=== PATIENT | female | born 1955 | race Caucasian/White ===

== ENCOUNTER 2019-11-20 20:27 | Emergency (ER) | payer MEDICARE, OTHER ==
[2019-11-20 20:50] VITALS: BP 112/60; PULSE 110
[2019-11-20] MEDS ORDERED: Sodium Chloride 0.9% 10 ML Syringe FLUSH PRN (20:54)
--- NOTE | 2019-11-20 21:23 | EDM.PDOC ---
ED HPI GENERAL MEDICAL PROBLEM - General Chief Complaint: General Stated Complaint: sore throat, edema to legs Time Seen by Provider: 11/20/19 20:50 Source of Information: Reports: Patient History Limitations: Reports: No Limitations - History of Present Illness INITIAL COMMENTS - FREE TEXT/NARRATIVE: Pt. presents to ER with numerous complaints. Pt. is currently being treated for malignant neoplasm of head or pancreas(adenocarcinoma). Pt. has undergone chemotherapy since May, starting in [place] and continuing at [facility]. Initially in [place], now on Gemcitabine and Abraxane due to intolerance. Pt. of [place]. Pt. has had a total of 2 weeks of chemo in [place]. She states that she also started radiation this past week as well. Last episode of chemotherapy was on Saturday. Last CT did not show significant improvement of the malignancy. Pleuritic fluid has been negative for malignant cells. Pt. primary complaints today are increased peripheral edema, irritation to mouth and throat, fatigue, increased ascites, fatigue. She has a pleurx catheter and is trained to drain this on her own. She states that she last did this last evening. Pt. complains of shortness of breath, but states that she has been experiencing this for some time, but feels it is worse today. Denies any chest, jaw, arm, neck or back pain. According to her medical record from [place], it appears that many of the complaints she has tonight have been present for some time. She has been dealing with anemia. Her last HgB 4 days ago was 6.5. She states that she has received 2 units of blood since that time. Denies any focal abdominal pain. She states that the discomfort is worse but similar to what she has been experiencing due to the ascites. 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 Onset: Today Onset Date: 11/20/19 Location: Reports: Abdomen, Lower Extremity, Left, Lower Extremity, Right, Generalized, Other (See HPI) Severity: Moderate - Related Data Allergies Allergy/AdvReac Type Severity Reaction Status Date / Time meperidine HCl [From Demerol] Allergy Cannot Verified 11/20/19 20:37 Remember Penicillins Allergy Rash Verified 11/20/19 20:37 promethazine HCl Allergy Cannot Verified 11/20/19 20:37 [From Phenergan] Remember vancomycin Allergy Cannot Verified 11/20/19 20:37 Remember Home Meds: Home Meds Morphine [Morphine 20 MG/ML Soln] 1 mg SQ ASDIRECTED 09/14/14 [History] Albuterol [Proventil Neb Soln] 2.5 mg NEB Q4H PRN 11/20/19 [History] Albuterol [Ventolin HFA] 2 puff INH Q4H PRN 11/20/19 [History] Apixaban [Eliquis] 5 mg PO BID 11/20/19 [History] Fluticasone/Vilanterol [Breo Ellipta 100-25 MCG Inhalation Kit] 1 each IH DAILY 11/20/19 [History] Furosemide [Lasix] 40 mg PO DAILY PRN 11/20/19 [History] Magnesium Oxide [Mag-Oxide] 200 mg PO BID 11/20/19 [History] Ondansetron [Zofran ODT] 8 mg PO TID PRN 11/20/19 [History] Potassium Chloride [Klor-Con M20] 40 meq PO BID 11/20/19 [History] atorvaSTATin [Lipitor] 40 mg PO DAILY 11/20/19 [History] oxyCODONE 5 mg PO Q6H PRN 11/20/19 [History] riTUXimab [Rituxan] 10 mg IV ASDIRECTED 11/20/19 [History] Past Medical History Gastrointestinal History: Reports: GERD Musculoskeletal History: Reports: Back Pain, Chronic Psychiatric History: Reports: Anxiety, Depression Hematologic History: Reports: Blood Transfusion(s) - Past Surgical History Neurological Surgical History: Reports: Other (See Below) ED ROS GENERAL - Review of Systems Review Of Systems: See Below Constitutional: Reports: Malaise, Fatigue HEENT: Reports: No Symptoms Respiratory: Reports: Shortness of Breath Cardiovascular: Reports: Edema Endocrine: Reports: No Symptoms GI/Abdominal: Reports: Abdominal Pain, Other (ascities ) : Reports: No Symptoms. Denies: Dysuria, Hematuria Musculoskeletal: Reports: No Symptoms Skin: Reports: No Symptoms Neurological: Reports: No Symptoms Psychiatric: Reports: No Symptoms Hematologic/Lymphatic: Reports: Anemia Immunologic: Reports: No Symptoms ED EXAM, GENERAL - Physical Exam Exam: See Below Exam Limited By: No Limitations General Appearance: Alert, WD/WN, No Apparent Distress Eye Exam: Bilateral Eye: EOMI, Normal Fundi, Normal Inspection, PERRL Head: Atraumatic, Normocephalic Neck: Normal Inspection, Supple, Non-Tender Respiratory/Chest: No Respiratory Distress, No Accessory Muscle Use, Chest Non- Tender, Decreased Breath Sounds Cardiovascular: Regular Rate, Rhythm, No JVD, No Murmur, Other (3+ edema) Peripheral Pulses: 3+: Radial (L) GI/Abdominal: Distended, Rebound, Tender, Other (severe ascites noted throughout ) (Female) Exam: Deferred Rectal (Female) Exam: Deferred Back Exam: Normal Inspection, Full Range of Motion Extremities: Pedal Edema (3+) Neurological: Alert, Oriented, CN II-XII Intact, No Motor/Sensory Deficits Psychiatric: Normal Affect, Normal Mood Skin Exam: Dry, No Rash, Pallor EKG INTERPRETATION Rhythm: NSR [place]: Normal P-Wave: Present QRS: Normal ST-T: Normal QT: Normal Course - Vital Signs Last Recorded V/S: Last Vital Signs Temp 37.1 C 11/20/19 20:48 Pulse 110 H 11/20/19 20:48 Resp 18 11/20/19 20:48 BP 112/60 11/20/19 20:48 Pulse Ox 96 11/20/19 20:48 - Orders/Labs/Meds Orders: Active Orders 24 hr Category Date Time Status EKG Documentation Completion [RC] STAT Care 11/20/19 20:54 Active Chest 1V Frontal [CR] Stat Exams 11/20/19 20:54 Taken CULTURE BLOOD [BC] Stat Lab 11/20/19 21:12 Received CULTURE BLOOD [BC] Stat Lab 11/20/19 21:18 Received CULTURE STREP A CONFIRMATION [RM] Stat Lab 11/20/19 21:38 Results STREP SCRN A RAPID W CULT CONF [RM] Stat Lab 11/20/19 21:38 Results UA RFX JOLENE AND CULT IF INDIC [URIN] Stat Lab 11/20/19 20:55 Ordered Sodium Chloride 0.9% [Normal Saline] 1,000 ml Med 11/20/19 22:23 Active IV .BOLUS Sodium Chloride 0.9% [Saline Flush] Med 11/20/19 20:54 Active 10 ml FLUSH ASDIRECTED PRN cefTRIAXone [Rocephin] Med 11/20/19 22:42 Once 2 gm IVPUSH STAT ONE Blood Culture x2 Reflex Set [OM.PC] Stat Oth 11/20/19 20:54 Ordered Peripheral IV Insertion Adult [OM.PC] Routine Oth 11/20/19 20:54 Ordered Medication Orders Sodium Chloride (Normal Saline) 1,000 mls @ 125 mls/hr IV .BOLUS ONE Stop: 11/21/19 06:22 Sodium Chloride (Saline Flush) 10 ml FLUSH ASDIRECTED PRN PRN Reason: Keep Vein Open Last Admin: 11/20/19 22:09 Dose: 10 ml Labs: Laboratory Tests 11/20/19 11/20/19 11/20/19 Range/Units 21:12 21:12 21:12 WBC 0.5 L* (4.0-10.0) x10^3/uL RBC 2.21 L (4.00-5.50) x10^6/uL Hgb 7.3 L (12.0-16.0) g/dL Hct 21.9 L (33.0-47.0) % MCV 99.1 H (78.0-93.0) fL MCH 33.0 H (26.0-32.0) pg MCHC 33.3 (32.0-36.0) g/dL RDW Coeff of William 21.6 H (10.0-15.0) % Plt Count 66 L (130-400) x10^3/uL Add Manual Diff Yes Neutrophils % (Manual) 39 L (50-80) % Band Neutrophils % 3 (0-6) % Lymphocytes % (Manual) 49 (25-50) % Monocytes % (Manual) 3 (2-11) % Eosinophils % (Manual) 1 (0-4) % Metamyelocytes % 1 H (0) % Blast Cells % 4 H (0) % Platelet Estimate Marked dec L Giant Platelets Few H Hypochromasia 1+ slight H Anisocytosis 3+ marked H PT 11.2 (9.5-12.3) SEC INR 1.0 L (2.0-3.5) Sodium 138 (136-145) mmol/L Potassium 3.5 (3.5-5.1) mmol/L Chloride 104 (98-107) mmol/L Carbon Dioxide 30 (21-32) mmol/L Anion Gap 7.5 L (10-20) mmol/L BUN 14 (7-18) mg/dL Creatinine 0.8 (0.55-1.02) mg/dL Est Cr Clr Drug Dosing TNP Estimated GFR (MDRD) > 60 Glucose 114 H (74-106) mg/dL Lactic Acid (0.4-2.0) mmol/L Calcium 7.6 L (8.5-10.1) mg/dL Corrected Calcium 9.84 (8.5-10.1) mg/dL Phosphorus 3.2 (2.6-4.7) mg/dL Magnesium 1.5 L (1.8-2.4) mg/dL Total Bilirubin 1.3 H (0.2-1.0) mg/dL AST 124 H (15-37) U/L ALT 68 H (14-59) U/L Alkaline Phosphatase 143 H (46-116) U/L Troponin I < 0.017 (<=0.056) ng/mL C-Reactive Protein 61.5 H (<=0.9) mg/dL NT-Pro-B Natriuret Pep 285 H (<=125) pg/mL Total Protein 4.0 L (6.4-8.2) g/dL Albumin 1.2 L (3.4-5.0) g/dL Globulin 2.8 Albumin/Globulin Ratio 0.43 Amylase 4 L (25-115) U/L Lipase 44 L (73-393) U/L SARS-CoV-2 RNA (RT-PCR) (NEGATIVE) 11/20/19 11/20/19 Range/Units 21:12 21:22 WBC (4.0-10.0) x10^3/uL RBC (4.00-5.50) x10^6/uL Hgb (12.0-16.0) g/dL Hct (33.0-47.0) % MCV (78.0-93.0) fL MCH (26.0-32.0) pg MCHC (32.0-36.0) g/dL RDW Coeff of William (10.0-15.0) % Plt Count (130-400) x10^3/uL Add Manual Diff Neutrophils % (Manual) (50-80) % Band Neutrophils % (0-6) % Lymphocytes % (Manual) (25-50) % Monocytes % (Manual) (2-11) % Eosinophils % (Manual) (0-4) % Metamyelocytes % (0) % Blast Cells % (0) % Platelet Estimate Giant Platelets Hypochromasia Anisocytosis PT (9.5-12.3) SEC INR (2.0-3.5) Sodium (136-145) mmol/L Potassium (3.5-5.1) mmol/L Chloride (98-107) mmol/L Carbon Dioxide (21-32) mmol/L Anion Gap (10-20) mmol/L BUN (7-18) mg/dL Creatinine (0.55-1.02) mg/dL Est Cr Clr Drug Dosing Estimated GFR (MDRD) Glucose (74-106) mg/dL Lactic Acid 1.4 (0.4-2.0) mmol/L Calcium (8.5-10.1) mg/dL Corrected Calcium (8.5-10.1) mg/dL Phosphorus (2.6-4.7) mg/dL Magnesium (1.8-2.4) mg/dL Total Bilirubin (0.2-1.0) mg/dL AST (15-37) U/L ALT (14-59) U/L Alkaline Phosphatase (46-116) U/L Troponin I (<=0.056) ng/mL C-Reactive Protein (<=0.9) mg/dL NT-Pro-B Natriuret Pep (<=125) pg/mL Total Protein (6.4-8.2) g/dL Albumin (3.4-5.0) g/dL Globulin Albumin/Globulin Ratio Amylase (25-115) U/L Lipase (73-393) U/L SARS-CoV-2 RNA (RT-PCR) Negative (NEGATIVE) Meds: Medications Generic Name Dose Route Start Last Admin Trade Name Freq PRN Reason Stop Dose Admin Sodium Chloride 1,000 mls @ 125 mls/hr 11/20/19 22:23 Normal Saline IV 11/21/19 06:22 .BOLUS ONE Sodium Chloride 10 ml 11/20/19 20:54 11/20/19 22:09 Saline Flush FLUSH 10 ml ASDIRECTED PRN Administration Keep Vein Open - Radiology Interpretation Free Text/Narrative:: chest x-ray negative. Departure - Departure Time of Disposition: 22:44 Disposition: DC/Tfer to [facility] 02 Clinical Impression: Neutropenia - Discharge Information Referrals: Sri Mascorro MD [Primary Care Provider] - Forms: ED Department Discharge Sepsis Event Note (ED) - Evaluation Sepsis Screening Result: No Definite Risk - Focused Exam Vital Signs: Vital Signs Temp Pulse Resp BP Pulse Ox 11/20/19 20:48 37.1 C 110 H 18 112/60 96 - Problem List Review Problem List Initiated/Reviewed/Updated: Yes - My Orders Last 24 Hours: My Active Orders 11/20/19 20:54 EKG Documentation Completion [RC] STAT Chest 1V Frontal [CR] Stat Sodium Chloride 0.9% [Saline Flush] 10 ml FLUSH ASDIRECTED PRN Blood Culture x2 Reflex Set [OM.PC] Stat Peripheral IV Insertion Adult [OM.PC] Routine 11/20/19 20:55 UA RFX JOLENE AND CULT IF INDIC [URIN] Stat 11/20/19 21:12 CULTURE BLOOD [BC] Stat 11/20/19 21:18 CULTURE BLOOD [BC] Stat 11/20/19 21:38 CULTURE STREP A CONFIRMATION [RM] Stat STREP SCRN A RAPID W CULT CONF [RM] Stat 11/20/19 22:23 Sodium Chloride 0.9% [Normal Saline] 1,000 ml IV .BOLUS 11/20/19 22:42 cefTRIAXone [Rocephin] 2 gm IVPUSH STAT ONE - Assessment/Plan Last 24 Hours: My Active Orders 11/20/19 20:54 EKG Documentation Completion [RC] STAT Chest 1V Frontal [CR] Stat Sodium Chloride 0.9% [Saline Flush] 10 ml FLUSH ASDIRECTED PRN Blood Culture x2 Reflex Set [OM.PC] Stat Peripheral IV Insertion Adult [OM.PC] Routine 11/20/19 20:55 UA RFX JOLENE AND CULT IF INDIC [URIN] Stat 11/20/19 21:12 CULTURE BLOOD [BC] Stat 11/20/19 21:18 CULTURE BLOOD [BC] Stat 11/20/19 21:38 CULTURE STREP A CONFIRMATION [RM] Stat STREP SCRN A RAPID W CULT CONF [RM] Stat 11/20/19 22:23 Sodium Chloride 0.9% [Normal Saline] 1,000 ml IV .BOLUS 11/20/19 22:42 cefTRIAXone [Rocephin] 2 gm IVPUSH STAT ONE Plan: Pt. will be transferred to [facility]. [facility] is accepting. Pt. is a code 1. Will be transported via [facility] ground ambulance. IV NS at 100ml/hr during transport. All questions were answered.
[2019-11-20 21:59] LABS: CHLORIDE,CL 104 mmol/L (98-107); SODIUM,NA 138 mmol/L (136-145)
[2019-11-20 22:06] LABS: ANION GAP 7.5 mmol/L (10-20)
[2019-11-20] MEDS ORDERED: Sodium Chloride 0.9% 1,000 ML IV ONE (22:23)
[2019-11-20] MEDS ORDERED: cefTRIAXone 2 GM Vial IVPUSH ONE (22:42)
--- NOTE | 2019-11-21 10:35 | CR ---
[id number] RAD/RAD Chest PA or AP 1V EXAM: FRONTAL CHEST INDICATION: DYSPNEA COMPARISON: August 16, 2013. DISCUSSION: Left subclavian approach port tip overlying the right atrium. Normal heart size. Mild scattered parenchymal scarring or atelectasis with no acute infiltrates identified. Fusion hardware overlies the lower thoracic spine. IMPRESSION: 1. No acute findings. Daren Holley MD 11/21/19 1034 Thank you for allowing us to participate in the care of your patient.
== END 2019-11-20 23:34 | disposition short-term general hospital (02) ==
LOC: VM.ED 20:27
DX: D70.9 Neutropenia, unspecified (principal); R06.02 Shortness of breath; R60.1 Generalized edema; Z88.5 Allergy status to narcotic agent; Z88.0 Allergy status to penicillin; Z88.1 Allergy status to other antibiotic agents; Z88.8 Allergy status to other drugs, medicaments and biological substances; Z79.01 Long term (current) use of anticoagulants; Z79.899 Other long term (current) drug therapy; Z20.828 Contact with and (suspected) exposure to other viral communicable diseases
CPT/HCPCS: 36415; 71045; 80053; 82150; 83605; 83690; 83735; 83880; 84100; 84484; 85025; 85610; 86140; 87040; 87081; 87880; 93005; 93010; 96374; 99284; 99285; J0696; J7030; U0002